=== PATIENT | female | born 1995 | race Two or more races ===

== ENCOUNTER → 2018-01-15 | Emergency (ER) | payer OTHER ==
[~2018-01-15] VITALS: Ht 149.9 cm; Wt 43.1 kg
[~2018-01-15] MED LIST: CEFUROXIME250 MG PO; URIN D.S. TABL1 EACH PO
== END | disposition home or self-care (01) ==
LOC: ER 00:06
DX: N39.0 Urinary tract infection, site not specified (principal); R10.2 Pelvic and perineal pain

== ENCOUNTER 2021-10-23 19:54 | Outpatient (CLI) | payer OTHER | END 2021-10-23 20:52 | disposition home or self-care (01) | LOC: OBS/DEL 19:54 | PROVIDERS: ATTEND Obstetrics & Gynecology | DX: O26.893 Other specified pregnancy related conditions, third trimester (principal); Z3A.29 29 weeks gestation of pregnancy; R10.2 Pelvic and perineal pain ==

== ENCOUNTER 2021-12-19 21:07 | Inpatient (IN) | payer OTHER ==
[~2021-12-19] VITALS: Ht 149.9 cm; Wt 57.6 kg
[2021-12-19] MEDS ORDERED: PRENATAL TABLE1 EAC1 PO (21:45)
== END 2021-12-24 17:16 | disposition home or self-care (01) | DRG 832 ==
LOC: OBS/DEL 21:07 → OB/GYN 12-20 12:58 → LDR 12-20 12:58 → OB/GYN 12-20 13:49
PROVIDERS: ADMIT Obstetrics & Gynecology; ATTEND Obstetrics & Gynecology
PROC: BT43ZZZ Ultrasonography of Bilateral Kidneys (ICD-10-PCS; principal; 2021-12-19)
PROC: BY4FZZZ Ultrasonography of Third Trimester, Single Fetus (ICD-10-PCS; 2021-12-19)
PROC: 4A1HXCZ Monitoring of Products of Conception, Cardiac Rate, External Approach (ICD-10-PCS; 2021-12-20)
DX: O99.013 Anemia complicating pregnancy, third trimester (principal); N13.39 Other hydronephrosis; D51.0 Vitamin B12 deficiency anemia due to intrinsic factor deficiency; O99.891 Other specified diseases and conditions complicating pregnancy; Z3A.38 38 weeks gestation of pregnancy; Z20.822 Contact with and (suspected) exposure to COVID-19

== ENCOUNTER 2021-12-31 07:25 | Inpatient (IN) | payer OTHER ==
[~2021-12-31] VITALS: Ht 149.9 cm; Wt 60.3 kg
[~2021-12-31 07:25] MED LIST changes: +PRENATAL TABLE1 EAC1 PO
[2021-12-31] MEDS ORDERED: IRON325 MG PO (09:03)
== END 2022-01-02 13:39 | disposition home or self-care (01) | DRG 807 ==
LOC: OB/GYN 07:25 → LDR 07:25 → O/R 12:47 → LDR 12:48 → OB/GYN 20:33
PROVIDERS: ADMIT Obstetrics & Gynecology; ATTEND Obstetrics & Gynecology
PROC: 10E0XZZ Delivery of Products of Conception, External Approach (ICD-10-PCS; principal; 2021-12-31)
PROC: 0W8NXZZ Division of Female Perineum, External Approach (ICD-10-PCS; 2021-12-31)
PROC: 4A1HXCZ Monitoring of Products of Conception, Cardiac Rate, External Approach (ICD-10-PCS; 2021-12-31)
DX: O80 Encounter for full-term uncomplicated delivery (principal); Z3A.39 39 weeks gestation of pregnancy; Z37.0 Single live birth; Z20.822 Contact with and (suspected) exposure to COVID-19